=== PATIENT | female | born 1990 | race Caucasian/White ===

== ENCOUNTER 2017-04-13 14:28 | Emergency (ER) | payer MEDICAID, OTHER ==
[2017-04-13 14:52] VITALS: BMI 26.5
[2017-04-13 14:55] VITALS: TEMP 98.5
--- NOTE | 2017-04-13 15:29 | C.PDOC ---
History Of Present Illness 27 y/o female presents to the ED with complaints of new onset lower abdominal pain today with associated nausea and vomiting. Pain is localized and constant. History of irregular menses. Denies fever, chills, chest pain or any other complaints. No PSHx. NEW ONSET LOWER ABD PAIN TODAY. +NV. LOCALIZED, CONSTANT. HO IRREG MENSES. NEG PSH. EXMA MILD DIST ABD NEG REMAINDER NEG Time Seen by Provider: 04/13/17 15:03 Chief Complaint (Nursing): Abdominal Pain History Per: Patient History/Exam Limitations: no limitations Onset/Duration Of Symptoms: Hrs Current Symptoms Are (Timing): Still Present Severity: Moderate Radiation Of Pain To:: None Quality Of Discomfort: "Pain" Associated Symptoms: Nausea, Vomiting. denies: Fever, Chest Pain Alleviating Factors: None Recent travel outside of the [place]: No Abnormal Vaginal Bleeding: No Past Medical History Reviewed: Historical Data, Nursing Documentation, Vital Signs Vital Signs: Last Vital Signs Temp 98.5 F 04/13/17 14:52 Pulse 71 04/13/17 14:52 Resp 18 04/13/17 14:52 BP 111/69 04/13/17 14:52 Pulse Ox 99 04/13/17 15:39 - [facility] Procedures TETANUS TOXOID ADMINIST (06/08/14) Family History: States: Unknown Family Hx - Social History Hx Tobacco Use: No Hx Alcohol Use: No Hx Substance Use: No - Immunization History Hx Tetanus Toxoid Vaccination: No Hx Influenza Vaccination: No Hx Pneumococcal Vaccination: No Review Of Systems Except As Marked, All Systems Reviewed And Found Negative. Constitutional: Negative for: Fever, Chills Cardiovascular: Negative for: Chest Pain Gastrointestinal: Positive for: Nausea, Vomiting, Abdominal Pain Genitourinary: Negative for: Vaginal Bleeding Physical Exam - Physical Exam Appears: Non-toxic, In Acute Distress (mild) Skin: Warm, Dry, No Rash Head: Atraumatic, Normacephalic Oral Mucosa: Moist Neck: Normal, Normal ROM, Supple Chest: Symmetrical Cardiovascular: Rhythm Regular, No Murmur Respiratory: Normal Breath Sounds, No Rales, No Rhonchi, No Wheezing Gastrointestinal/Abdominal: Normal Exam, Soft, No Tenderness Extremity: Bilateral: Atraumatic Neurological/Psych: Oriented x3, Normal Speech, Normal Cognition ED Course And Treatment - Laboratory Results Result Diagrams: 04/13/17 15:48 04/13/17 15:48 O2 Sat by Pulse Oximetry: 99 (room air) Pulse Ox Interpretation: Normal - CT Scan/US PELVIC Other Rad Studies (CT/US): Radiology Report Reviewed (7 weeks 1 day live intrauterine gestation.) Reevaluation Time: 17:28 Reassessment Condition: Improved Medical Decision Making Medical Decision Making: Plan: * UA * urine preg Disposition Counseled Patient/Family Regarding: Studies Performed, Diagnosis, Need For Followup, Rx Given - Disposition Referrals: [facility] [Outside] [facility] [Outside] Disposition: HOME/ ROUTINE Disposition Time: 17:28 Condition: IMPROVED Prescriptions: Ondansetron [Zofran Odt] 4 mg PO TID PRN #9 odt PRN Reason: Nausea/Vomiting Instructions: Threatened Miscarriage (ED) Forms: Work Excuse Print Language: BENGALI - Clinical Impression Clinical Impression: Threatened - Scribe Statement The provider has reviewed the documentation as recorded by the Raymond Leon Provider Attestation: All medical record entries made by the Raymond were at my direction and personally dictated by me. I have reviewed the chart and agree that the record accurately reflects my personal performance of the history, physical exam, medical decision making, and the department course for this patient. I have also personally directed, reviewed, and agree with the discharge instructions and disposition.
[2017-04-13 15:52] LABS: BASO % 0.6 % (0.0-2.0); EOS # 0.3 K/uL (0.0-0.7); EOS % 3.6 % (0.0-4.0); HEMOGLOBIN 11.4 g/dL (11.0-16.0); LYMPH # 1.9 K/uL (1.0-4.3); LYMPH % 24.8 % (20.0-40.0); MEAN CELL VOLUME 83.3 fL (81.0-99.0); MEAN CORPUSCULAR HEMOGLOBIN 26.9 pg (27.0-31.0); MEAN CORPUSCULAR HGB CONC 32.3 g/dL (33.0-37.0); MEAN PLATELET VOLUME 9.6 fL (7.2-11.7); MONO # 0.5 K/uL (0.0-0.8); NEUT # 4.9 K/uL (1.8-7.0); NRBC % 0.1 % (0.0-2.0); RBC 4.23 Mil/uL (3.80-5.20); RED CELL DISTRIBUTION WIDTH 14.6 % (11.5-14.5); WHITE BLOOD COUNT 7.6 K/uL (4.8-10.8)
[2017-04-13 15:55] LABS: SQUAMOUS EPITHIAL 3 /hpf (0-5); URINE BILIRUBIN NEGATIVE (NEGATIVE); URINE BLOOD NEGATIVE (NEGATIVE); URINE CLARITY Clear (Clear); URINE COLOR Yellow (YELLOW); URINE GLUCOSE (UA) NORMAL (Normal); URINE LEUKOCYTE ESTERASE NEG Leu/uL (Negative); URINE NITRATE NEGATIVE (NEGATIVE); URINE PROTEIN NEGATIVE (NEGATIVE); URINE UROBILINOGEN NORMAL mg/dL (0.2-1.0)
[2017-04-13 16:03] LABS: GFR AFRICAN-AMERICAN > 60; GFR NON-AFRICAN AMERICAN > 60
[2017-04-13 16:04] LABS: BLOOD UREA NITROGEN 9 mg/dL (7-17); CALCIUM 8.6 mg/dl (8.6-10.4)
--- NOTE | 2017-04-13 17:22 | US ---
PROCEDURE: First trimester ultrasound HISTORY: PAIN R/O ECTOPIC Beta HCG results: [id number]. COMPARISON: None available. TECHNIQUE: Standard protocol for this study/examination. FINDINGS: LMP: 02/26/2017 Prior examinations from the current : None TECHNIQUE: Real-time 2D imaging, duplex and color Doppler. FINDINGS: Cardiac activity: Present Rate: 132 BPM Measurements: Hutchison rump length: 0.88 cm Gestational age based on CRL 6 weeks 6 days Gestational age based on gestational sac measurement 7 weeks 3 days Gestational age derived from LMP: 6 weeks 4 days RADHA based on LMP: 12/03/2017 RADHA based on biometry: 11/29/2017 Gestational concordance documented Yolk sac identified Uterus: Unremarkable. 5.5 x 6.9 x 11.8 cm. No Cervical abnormalities: Negative examination for cervical dilatation or effacement. Subchorionic hemorrhage: None ADNEXA: Right: 2.7 x 4 x 4.9 cm. Simple cyst 2.2 cm Normal Doppler arterial waveform documented. Left: 2.4 x 3.2 cm. Normal Doppler arterial waveform documented Fluid in the cul-de-sac: None IMPRESSION: 7 weeks 1 day live intrauterine gestation. No visualized/apparent ectopic gestation.
[2017-04-13 17:44] VITALS: BP 94/60; PULSE 73; RESP 16; O2SAT 98
== END 2017-04-13 17:43 | disposition home or self-care (01) ==
LOC: C.ER 14:28
DX: O20.0 Threatened abortion (principal); Z3A.01 Less than 8 weeks gestation of pregnancy